=== PATIENT | female | born 1985 | race Caucasian/White ===

== ENCOUNTER 2018-12-05 09:25 | Emergency (ER) | payer MEDICAID, OTHER ==
[~2018-12-05] VITALS: Ht 152.4 cm; Wt 66.0 kg
[~2018-12-05 09:25] MED LIST: ALPR0.25 PO; SERT25TA PO
[2018-12-05] MEDS ORDERED: MORPHINE SULFATE 4 MG/ML CPJ (NOT FOR IM USE) IV ONE (11:15)
[2018-12-05] MEDS ORDERED: SODIUM CHLORIDE 0.9% 1,000 ML IV ONE (11:15)
[2018-12-05] MEDS ORDERED: ONDANSETRON HCL 4MG/2ML INJ IV ONE (11:15)
[2018-12-05 11:57] LABS: CLARITY URINE CLEAR (CLEAR); COLOR URINE YELLOW (YELLOW); PROTEIN URINE NEGATIVE (NEGATIVE); SPECIFIC GRAVITY URINE 1.012 (1.005-1.030)
[2018-12-05 11:57] LABS: CHLORIDE 106 mEq/L (98-107)
[2018-12-05 11:58] LABS: KETONES URINE 1+ (NEGATIVE); LEUKOCYTE ESTERASE URINE NEGATIVE (NEGATIVE); NITRITE URINE NEGATIVE (NEGATIVE); OCCULT BLOOD URINE NEGATIVE (NEGATIVE); UROBILINOGEN URINE 0.2 E.U./dL (0.2-1.0)
[2018-12-05 12:10] LABS: B-HCG QUANTITATIVE < 1 mIU/mL (<3)
[2018-12-05 12:11] LABS: BASOPHILS % 0.8 % (0.0-2.0); EOSINOPHILS % 1.4 % (0.0-5.0); HEMATOCRIT. 36.3 % (36.0-48.0); HEMOGLOBIN. 12.1 g/dL (12.0-16.0); LYMPHOCYTES % 21.3 % (20.0-50.0); MEAN CORPUSCULAR HEMOGLOBIN 29.8 pg (28.0-32.0); MEAN CORPUSCULAR VOLUME 89.6 fL (81.0-99.0); MONOCYTES % 7.5 % (2.0-8.0); PLATELET 248 x1000/uL (130-400); RED BLOOD CELL COUNT 4.05 mill/uL (4.2-5.4)
[2018-12-05] MEDS ORDERED: CEFTRIAXONE 1 G PREMIX 50 ML IV ONE (14:15)
[2018-12-05] MEDS ORDERED: AZITHROMYCIN 500 MG TABLET PO ONE (14:15)
[2018-12-05 18:33] VITALS: BP 113/59
== END 2018-12-05 18:41 | disposition home or self-care (01) ==
LOC: ER 09:25
DX: K52.9 Noninfective gastroenteritis and colitis, unspecified (principal); Z98.890 Other specified postprocedural states
CPT/HCPCS: 36415; 74177; 76830; 76856; 80053; 81003; 81025; 84702; 85025; 86850; 86900; 86901; 87210; 87491; 96365; 96366; 96375; 99284; J0696; J2270; J2405; J7030; Z7610

== ENCOUNTER 2023-12-15 15:36 | Emergency (ER) | payer MEDICAID, OTHER ==
[~2023-12-15] VITALS: Ht 157.5 cm; Wt 77.0 kg
[2023-12-15 15:42] VITALS: O2SAT 100
[2023-12-15] MEDS: MORPHINE SULFATE 4 MG/ML INJ (FOR IV/IM USE) IM ONE (16:12)
[2023-12-15] MEDS: ONDANSETRON 4MG ODT PO ONE (16:13)
[2023-12-15] MEDS: MORPHINE SULFATE 4 MG/ML INJ (FOR IV/IM USE) IV STA (17:09)
[2023-12-15] MEDS: ONDANSETRON HCL 4MG/2ML INJ IV STA (17:10)
[2023-12-15 17:21] LABS: BASOPHILS % 0.4 % (0.0-2.0); EOSINOPHILS % 0.2 % (0.0-5.0); HEMATOCRIT. 31.7 % (36.0-48.0); HEMOGLOBIN. 10.6 g/dL (12.0-16.0); LYMPHOCYTES % 7.4 % (20.0-50.0); MEAN CORPUSCULAR HGB CONC 33.3 g/dL (31.0-37.0); MEAN CORPUSCULAR VOLUME 87.1 fL (81.0-99.0); MEAN PLATELET VOLUME 9.1 fl (7.4-10.4); MONOCYTES % 11.2 % (2.0-8.0); NEUTROPHILS % 80.8 % (40.0-76.0); PLATELET 226 x1000/uL (130-400); RED BLOOD CELL COUNT 3.64 mill/uL (4.2-5.4); RED CELL DISTRIBUTION WIDTH 14.1 % (11.6-14.6); WHITE BLOOD COUNT 11.7 x1000/uL (4.5-11.0)
[2023-12-15 17:26] LABS: CHLORIDE 106 mEq/L (98-107); POTASSIUM 3.8 mEq/L (3.5-5.1); SODIUM 138 mEq/L (136-145)
[2023-12-15 17:27] LABS: CALCIUM 8.9 mg/dL (8.7-10.4); CARBON DIOXIDE 25 mEq/L (21-32)
[2023-12-15] MEDS: CEFAZOLIN 1000MG PREMIX 50 ML IV ONE (17:27)
[2023-12-15 17:32] LABS: CREATININE 0.7 mg/dL (0.6-1.0); GLUCOSE 112 mg/dL (70-105); PROTHROMBIN TIME 10.7 sec (9.6-11.0); UREA NITROGEN BLOOD 7 mg/dL (9-23)
[2023-12-15] MEDS: MORPHINE SULFATE 4 MG/ML INJ (FOR IV/IM USE) IV NR (17:54)
[2023-12-15 18:41] LABS: CLARITY URINE CLEAR (CLEAR); COLOR URINE YELLOW (YELLOW); GLUCOSE URINE NEGATIVE (NEGATIVE); KETONES URINE TRACE (NEGATIVE); LEUKOCYTE ESTERASE URINE NEGATIVE (NEGATIVE); NITRITE URINE NEGATIVE (NEGATIVE); OCCULT BLOOD URINE NEGATIVE (NEGATIVE); PH URINE 6.5 (4.5-8.0); PROTEIN URINE NEGATIVE (NEGATIVE); SPECIFIC GRAVITY URINE 1.004 (1.005-1.030); UROBILINOGEN URINE 0.2 E.U./dL (0.2-1.0)
[2023-12-15] MEDS: KETOROLAC 30MG/ML VIAL IV NR (20:47)
[2023-12-15] MEDS: ONDANSETRON HCL 4MG/2ML INJ IV NR (20:47)
[2023-12-15] MEDS: MORPHINE SULFATE 2 MG/ML INJ (NOT FOR IM USE) IV ONE (21:38)
[2023-12-16] MEDS ORDERED: CEFAZOLIN 1000MG PREMIX 50 ML IV ONE (06:30)
[2023-12-16] MEDS: MORPHINE SULFATE 4 MG/ML INJ (FOR IV/IM USE) IV ONE (07:21)
[2023-12-16] MEDS ORDERED: MORPHINE SULFATE 4 MG/ML INJ (FOR IV/IM USE) IV ONE (11:00)
[2023-12-16] MEDS: CEFAZOLIN 1,000 MG in DEXTROSE 5% WATER 50 ML IV NR (11:21)
[2023-12-16 11:35] VITALS: TEMP 36.66960
[2023-12-16] MEDS: KETOROLAC 30MG/ML VIAL IV ONE (11:52)
[2023-12-16 12:10] VITALS: BP 100/60; PULSE 85; RESP 18; O2SAT 100
== END 2023-12-16 11:12 | disposition short-term general hospital (02) ==
LOC: ER 15:36
DX: S52.002B Unspecified fracture of upper end of left ulna, initial encounter for open fracture type I or II (principal); Z90.49 Acquired absence of other specified parts of digestive tract; Z98.890 Other specified postprocedural states; W01.0XXA Fall on same level from slipping, tripping and stumbling without subsequent striking against object, initial encounter; Y93.89 Activity, other specified; Y92.89 Other specified places as the place of occurrence of the external cause; Y99.8 Other external cause status
CPT/HCPCS: 36415; 73060; 73090; 73200; 80048; 81003; 85025; 96365; 96366; 96372; 96375; 96376; 99285; A4565; J0690; J1885; J2270; J2405; J7060; Q0162